=== PATIENT | female | born 1935 | race Caucasian/White ===

== ENCOUNTER 2020-12-16 23:46 | Inpatient (IN) | payer MEDICARE ==
[~2020-12-16] VITALS: Ht 170.2 cm; Wt 85.7 kg
[2020-12-17] MEDS ORDERED: HYDROMORPHONE 1 MG/1 ML DISP.SYRIN IV ONE
[2020-12-17] MEDS ORDERED: KETOROLAC TROMETHAMINE 15 MG INJ IVP ONE
[2020-12-17] MEDS ORDERED: ONDANSETRON 4 MG/2 ML VIAL IV ONE
[2020-12-17 00:11] LABS: HEMATOCRIT 44.4 % (31.2-41.9); MEAN CORPUSCULAR HEMOGLOBIN 29.8 uug (24.7-32.8); MEAN CORPUSCULAR VOLUME 90.9 fL (75.5-95.3); PLATELET COUNT (AUTO) 215 K/uL (179-408)
--- NOTE | 2020-12-17 00:15 | NUR ---
Patient BIB [facility] from home for left hip pain after fall. Pt. a&ox4. Pain is 8/10 only with movement. Pt. has superficial scrape on L arm. Pt. denies dizziness or loss of consciousness.
[2020-12-17 00:22] LABS: CREATININE 1.2 mg/dL (0.6-1.3); POTASSIUM 4.3 mmol/L (3.5-5.1)
[2020-12-17] MEDS ORDERED: KETOROLAC TROMETHAMINE 15 MG INJ ONE (00:23)
[2020-12-17] MEDS ORDERED: HYDROMORPHONE 1 MG/1 ML DISP.SYRIN ONE (00:24)
[2020-12-17] MEDS ORDERED: ONDANSETRON 4 MG/2 ML VIAL ONE ×2 (00:24→03:10)
--- NOTE | 2020-12-17 01:29 | NUR ---
Pt to be admitted. Dr. Christian and [facility] called. Pts. son is at the bedside.
--- NOTE | 2020-12-17 02:00 | NUR ---
Pt denies pain, states discomfort only occurs when she is changing positions. Pt. resting in bed, no new symptoms, no signs of distress. Will continue to monitor.
[2020-12-17 02:10] LABS: *BILIRUBIN,URIN NEGATIVE (NEGATIVE); *BLOOD, URINE 1+ (NEGATIVE); *COLOR,URINE YELLOW (YELLOW); *KETONES,URINE TRACE (NEGATIVE); *UROBILINOGEN,URINE 0.2 E.U./dl (NORMAL); LEUKOCYTE ESTERASE ,URINE NEGATIVE (NEGATIVE); NITRITE, URINE NEGATIVE (NEGATIVE); PH,URINE 5.5 (5.0-8.0); UGLUCOSE NEGATIVE (NEGATIVE)
[2020-12-17 02:23] LABS: *CLARITY,URINE HAZY (CLEAR)
[2020-12-17 02:24] LABS: BACTERIA,URINE MANY /HPF (NONE SEEN); MUCUS,URINE FEW /LPF (0-FEW); SQUAMOUS EPITHELIAL CELL,UR NONE SEEN /HPF (NONE SEEN); WBC,URINE 0-3 /HPF (0-3)
--- NOTE | 2020-12-17 03:30 | NUR ---
Pt had 3 vomiting episodes, pt. cleaned up.
[2020-12-17] MEDS ORDERED: PROCHLORPERAZINE EDISYLATE 10 MG/2 ML VIAL ONE (03:44)
[2020-12-17] MEDS ORDERED: PROCHLORPERAZINE EDISYLATE 10 MG/2 ML VIAL IV ONE (03:45)
[2020-12-17] MEDS ORDERED: ONDANSETRON 4 MG/2 ML VIAL IV STA (07:35)
--- NOTE | 2020-12-17 07:55 | NUR ---
recieved pt in bed, resting, arousable.monitor on.
--- NOTE | 2020-12-17 08:53 | NUR ---
DR. DELVALLE TALKING TO DR. BOWLING OVER THE PHONE FOR ORTHO CONSULT.
--- NOTE | 2020-12-17 09:30 | NUR ---
PT TRANSFERED TO FLOOR IN STABLE CONDITION, PT REFUSED PAIN MED AT TIME OF TRANSFER.
--- NOTE | 2020-12-17 09:30 | NUR ---
Received patient from ER via bed, report given by Ramon. Patient is alert/orientedx4, denies pain, on oxygen at 1Lpm via NC. Body assessment done, skin tear noted to the left arm. Skin discoloration noted to the right arm. Belongings list done, and signed. MD notifed and reconciled meds. Family made aware. Will continue to monitor.
[2020-12-17] MEDS ORDERED: ONDANSETRON 4 MG/2 ML VIAL IV PRN ×2 (10:45→19:15)
[2020-12-17] MEDS ORDERED: ZOLPIDEM 5 MG TABLET PO PRN (10:45)
[2020-12-17] MEDS ORDERED: MORPHINE SULFATE 2 MG/1 ML DISP.SYRIN IV PRN ×2 (10:45→19:15)
[2020-12-17] MEDS ORDERED: ACETAMINOPHEN 325 MG TABLET PO PRN ×2 (10:45→19:15)
[2020-12-17] MEDS ORDERED: Z GUARD REMEDY PASTE 57 GM TUBE TOP PRN ×2 (10:45→19:15)
[2020-12-17] MEDS ORDERED: MAGNESIUM HYDROXIDE 30 ML LIQUID UDC PO PRN ×2 (10:45→19:15)
[2020-12-17 10:50] VITALS: BP 134/59
[2020-12-17 15:35] VITALS: BP 128/48
--- NOTE | 2020-12-17 18:00 | NUR ---
Dr Daniel order to hold Lovenox 24 hrs prior to surgery. Will endorsed to the next shift.
--- NOTE | 2020-12-17 18:00 | NUR ---
Patient was given Morphine PRN as ordered, effective. Patient reported she feels better during reassessment. Family was at bedside. Will continue to monitor. Endorsed.
[2020-12-17] MEDS ORDERED: IV D5 1/2 NS 1000 ML 1,000 ML IV PRN (19:15)
--- NOTE | 2020-12-17 19:15 | NUR ---
Patient signed consent for transfer to [facility]. She is alert/oriented. Able to make needs known. Will endorsed to the next shift.
[2020-12-17 20:10] VITALS: BP 124/52
--- NOTE | 2020-12-17 20:12 | NUR ---
Patient in bed AALox4. Denies pain at this time. No acute distress noted. Iv on right AC started IVF running at 75 cc/hr.Applied knee high gilda hose to aditya LE.Patient on clear liquids till 0700 then NPO after 0700 .Patient aware of transfer to [facility] in the morning for sx.Call light with in reach.
[2020-12-18 04:05] VITALS: BP 127/46
[2020-12-18 06:39] LABS: HEMATOCRIT 39.7 % (31.2-41.9); MEAN CORPUSCULAR HEMOGLOBIN 30.5 uug (24.7-32.8); MEAN CORPUSCULAR VOLUME 90.8 fL (75.5-95.3); PLATELET COUNT (AUTO) 194 K/uL (179-408)
[2020-12-18 06:52] LABS: CREATININE 1.1 mg/dL (0.6-1.3); MAGNESIUM 2.4 mg/dL (1.8-2.4); PHOSPHOROUS 2.9 mg/dL (2.5-4.9); POTASSIUM 3.9 mmol/L (3.5-5.1)
[2020-12-18] MEDS ORDERED: IV NS 1000 ML 1,000 ML IV PRN (07:00)
[2020-12-18] MEDS ORDERED: MISCELLANEOUS MED XX PRN (07:15)
[2020-12-18] MEDS ORDERED: ONDA4VIA23 IV (07:18)
[2020-12-18] MEDS ORDERED: Morphine Sulfate Inj IV (07:18)
[2020-12-18] MEDS ORDERED: CALC1TAB30 PO (07:26)
[2020-12-18] MEDS ORDERED: ENOX40DI SQ (07:26)
[2020-12-18 08:00] VITALS: BP 125/50
[2020-12-18] MEDS ORDERED: CHLORHEXIDINE GLUCONATE 4% TOP SOL 118 ML TP ONE (09:00)
--- NOTE | 2020-12-18 10:30 | NUR ---
REPORT CALLED TO EMELYN CONTRERAS AT [facility]. PT BEING TRANSFERRED FOR LEFT HIP ARTHROPLASTY VS HEMIARTHROPLASTY. PT TO CONTINUE ABX AT [facility] BEFORE SURGERY (ANCEF AND VANCO). PT A/OX4, VITALS STABLE: BP 135/58, TEMP 98.0, O2 ON 1L VIA NC 97%, PT HAS IV ON THE RIGHT AC 20G, ANN CATHETER IN PLACE. PT HAS SKIN TEAR ON THE LEFT ARM COVERED IN BORDERED GAUZE AND ECCHYMOSIS ON THE LEFT FA. PT GOING TO [facility] ROOM 322. PT PICKED UP BY AMBULANCE.
== END 2020-12-18 10:54 | disposition short-term general hospital (02) | DRG 963 ==
LOC: ER 23:49 → MEDSURG3 12-17 09:20
PROVIDERS: ADMIT Family Medicine; ATTEND Family Medicine
DX: S72.012A Unspecified intracapsular fracture of left femur, initial encounter for closed fracture (principal); N17.0 Acute kidney failure with tubular necrosis; S32.592A Other specified fracture of left pubis, initial encounter for closed fracture; Z20.822 Contact with and (suspected) exposure to COVID-19; D72.829 Elevated white blood cell count, unspecified; E66.9 Obesity, unspecified; E86.9 Volume depletion, unspecified; M16.11 Unilateral primary osteoarthritis, right hip; M85.80 Other specified disorders of bone density and structure, unspecified site; W18.30XA Fall on same level, unspecified, initial encounter; Y92.009 Unspecified place in unspecified non-institutional (private) residence as the place of occurrence of the external cause; Z87.891 Personal history of nicotine dependence; Z90.710 Acquired absence of both cervix and uterus; Z85.3 Personal history of malignant neoplasm of breast; Z90.10 Acquired absence of unspecified breast and nipple; Z82.49 Family history of ischemic heart disease and other diseases of the circulatory system; Z82.0 Family history of epilepsy and other diseases of the nervous system
CPT/HCPCS: 36415; 70030-TC; 71045; 72170; 73502; 73551; 73560; 83735; 84100; 85025; 85730; 86850; 86900; 86901; 87086; 93005; 93307; A4663; G0378; J0780; J1170; J1885; J2270; J2405; J3490